=== PATIENT | male | born 1960 | race Caucasian/White ===

== ENCOUNTER 2017-09-30 13:33 | Inpatient (IN) | payer BC, OTHER ==
[2017-09-30] MEDS ORDERED: Sodium Chloride 0.9% 1,000 ML IV ONE ×2 (14:07→14:50)
[2017-09-30] MEDS ORDERED: Sodium Chloride 0.9% 1,000 ML ONE ×2 (14:15→15:11)
--- NOTE | 2017-09-30 14:25 | RAD ---
Chest x-ray single frontal view History: Chest pain. Comparison: None available. Findings: Biapical pleural thickening with upper lobe granulomatous changes. Few small scattered nodular densities in the right lung apex. No focal infiltrate or effusion. Heart size within normal limits. Postsurgical changes of the left proximal humerus. Impression: Biapical pleural thickening with upper lobe granulomatous changes. Few small scattered nodular densities in the right lung apex. No focal infiltrate or effusion. Heart size within normal limits. Postsurgical changes of the left proximal humerus.
[2017-09-30 14:27] LABS: BASO % 0.5 % (0.0-2.0); HEMOGLOBIN 14.1 g/dL (12.0-18.0); LYMPH # 0.5 K/uL (1.0-4.3); LYMPH % 7.8 % (20.0-40.0); MEAN CORPUSCULAR HEMOGLOBIN 38.2 pg (27.0-31.0); MEAN CORPUSCULAR HGB CONC 34.4 g/dL (33.0-37.0); MEAN PLATELET VOLUME 10.5 fL (7.2-11.7); MONO # 0.6 K/uL (0.0-0.8); MONO % 10.1 % (0.0-10.0); NEUT # 4.8 K/uL (1.8-7.0); NEUT % 81.6 % (50.0-75.0); RBC 3.68 Mil/uL (4.40-5.90); RED CELL DISTRIBUTION WIDTH 15.1 % (11.5-14.5); WHITE BLOOD COUNT 5.8 K/uL (4.8-10.8)
[2017-09-30 14:33] LABS: VENOUS BLOOD GAS BASE EXCESS 3.2 mmol/L (0.0-2.0); VENOUS BLOOD GAS PCO2 42 mmHg (40-60); VENOUS BLOOD GAS PO2 27 mm/Hg (30-55); VENOUS BLOOD PH 7.43 (7.32-7.43)
[2017-09-30 14:34] LABS: PLATELET COUNT 68 K/uL (130-400)
[2017-09-30 14:37] LABS: ALB/GLOB RATIO 1.2 (1.0-2.1); ALBUMIN 4.8 g/dL (3.5-5.0); ALT/SGPT 54 U/L (21-72); AST/SGOT 188 U/L (17-59); BLOOD UREA NITROGEN 9 mg/dL (9-20); CALCIUM 10.2 mg/dl (8.6-10.4); GFR AFRICAN-AMERICAN > 60; GFR NON-AFRICAN AMERICAN > 60
[2017-09-30 14:48] LABS: B-TYPE NATRIURETIC PEPTIDE 181 pg/mL (0-900)
--- NOTE | 2017-09-30 15:07 | C.PDOC ---
History Of Present Illness Patient is a 57 y/o male who presents to the ED with a complaint of tremors and generalized body aches for the last 2 days. Patient denies using any medications ; admits last drink was over 1 week ago. Patient is tremulous on arrival. No other physical complaints at this time. Time Seen by Provider: 09/30/17 13:50 Chief Complaint (Nursing): Medical Clearance History Per: Patient History/Exam Limitations: no limitations Onset/Duration Of Symptoms: Days Current Symptoms Are (Timing): Still Present Recent travel outside of the [place]: No Past Medical History Reviewed: Historical Data, Nursing Documentation, Vital Signs Vital Signs: Last Vital Signs Temp 99.7 F H 09/30/17 13:42 Pulse 100 H 09/30/17 16:33 Resp 20 09/30/17 16:33 BP 132/81 09/30/17 16:33 Pulse Ox 98 09/30/17 16:55 - Medical History PMH: No Chronic Diseases Surgical History: Appendectomy Family History: States: No Known Family Hx - Social History Hx Tobacco Use: No Hx Alcohol Use: Yes Hx Substance Use: No - Immunization History Hx Tetanus Toxoid Vaccination: No Hx Influenza Vaccination: No Hx Pneumococcal Vaccination: No Review Of Systems Musculoskeletal: Positive for: Other (body tremors) Psych: Positive for: Withdrawal (alcohol ) Physical Exam - Physical Exam Appears: Non-toxic Skin: Normal Color, Warm, Dry Head: Atraumatic, Normacephalic Oral Mucosa: Moist Chest: Symmetrical Cardiovascular: Rhythm Regular, No Murmur, Other (tachycardic rate) Respiratory: Normal Breath Sounds, No Rales, No Rhonchi, No Wheezing Gastrointestinal/Abdominal: Soft, No Tenderness Additional Physical Exam Comments: assessment: alcohol/withdrawal ED Course And Treatment - Laboratory Results Result Diagrams: 09/30/17 14:19 09/30/17 14:19 ECG: Interpreted By Me, Viewed By Me ECG Rhythm: Sinus Tachycardia ECG Interpretation: Abnormal Interpretation Of ECG: Normal intervals, normal axis. Poor R wave progression. No st/t wave abnormalities. Rate From EC (bpm) O2 Sat by Pulse Oximetry: 98 Pulse Ox Interpretation: Normal - Other Rad CXR X-Ray: Interpreted by Me, Viewed By Me Interpretation: Chest x-ray single frontal view. History: Chest pain. Comparison: None available. Findings: Biapical pleural thickening with upper lobe granulomatous changes. Few small scattered nodular densities in the right lung apex. No focal infiltrate or effusion. Heart size within normal limits. Postsurgical changes of the left proximal humerus. Impression: Biapical pleural thickening with upper lobe granulomatous changes. Few small scattered nodular densities in the right lung apex. No focal infiltrate or effusion. Heart size within normal limits. Postsurgical changes of the left proximal humerus. - CT Scan/US CT Head Other Rad Studies (CT/US): Interpreted By Me, Read By Radiologist CT/US Interpretation: PROCEDURE: CT HEAD WITHOUT CONTRAST. HISTORY: Tremors, alcohol. COMPARISON: None available. TECHNIQUE: Axial computed tomography images were obtained through the head/brain without intravenous contrast. Radiation dose: Total exam DLP = 752.76 mGy-cm. This CT exam was performed using one or more of the following dose reduction techniques: Automated exposure control, adjustment of the mA and/or kV according to patient size, and/ or use of iterative reconstruction technique. FINDINGS: HEMORRHAGE: No intracranial hemorrhage. BRAIN: Keyes-white matter differentiation is preserved. There is no mass, mass effect or abnormal extra-axial fluid collection. There is no territorial infarction. VENTRICLES: There is moderate age advanced global parenchymal volume loss and proportionate enlargement of the ventricles and cortical sulci. CALVARIUM: There is no calvarial fracture or extracranial soft tissue swelling. PARANASAL SINUSES: Unremarkable as visualized. No significant inflammatory changes. MASTOID AIR CELLS: Unremarkable as visualized. No inflammatory changes. OTHER FINDINGS: None. IMPRESSION: No acute intracranial abnormality. Moderate global parenchymal volume loss, advanced for the patient's age. Progress Note: CXR, EKG, blood work, lactic acid, UA ordered. Librium, ativan, reglan, IV fluids administered. On re-eval, repeat lactic acid ordered. Patient has no white count or fever. Tremulous only on arrival. 2L fluid given. - Physician Consult Information Time Consulting Physician Contacted: 04:40 Physician Contacted: Tamera Marie Outcome Of Conversation: Advises to admit patient to [facility] for alcohol withdrawal. Disposition Discussed With : Tamera Marie Doctor Will See Patient In The: Hospital Counseled Patient/Family Regarding: Studies Performed, Diagnosis - Disposition Disposition: HOSPITALIZED Disposition Time: 16:49 Condition: FAIR - Clinical Impression Clinical Impression: Alcohol withdrawal - Scribe Statement The provider has reviewed the documentation as recorded by the Scribe Nereida [place] All medical record entries made by the Selinaibbeatriz were at my direction and personally dictated by me. I have reviewed the chart and agree that the record accurately reflects my personal performance of the history, physical exam, medical decision making, and the department course for this patient. I have also personally directed, reviewed, and agree with the discharge instructions and disposition.
[2017-09-30 15:22] LABS: BASOPHIL 1 % (0-2); LYMPHOCYTE 9 % (20-40); MONOCYTE 6 % (0-10); NEUTROPHIL 84 % (50-75); PLATELET ESTIMATE DECREASED (NORMAL); TOTAL CELLS COUNTED 100
[2017-09-30] MEDS ORDERED: Magnesium Sulfate 1 gm in D5W 1 GM/100 ML BAG IVPB ONE ×2 (15:35→15:42)
[2017-09-30 16:28] LABS: SQUAMOUS EPITHIAL < 1 /hpf (0-5); URINE BILIRUBIN NEGATIVE (NEGATIVE); URINE BLOOD NEGATIVE (NEGATIVE); URINE CLARITY Clear (Clear); URINE COLOR Yellow (YELLOW); URINE GLUCOSE (UA) 2+ mg/dL (Normal); URINE LEUKOCYTE ESTERASE NEG Leu/uL (Negative); URINE PROTEIN 1+ mg/dL (NEGATIVE); URINE UROBILINOGEN NORMAL mg/dL (0.2-1.0)
--- NOTE | 2017-09-30 16:34 | CT ---
PROCEDURE: CT HEAD WITHOUT CONTRAST. HISTORY: Tremors, alcohol COMPARISON: None available. TECHNIQUE: Axial computed tomography images were obtained through the head/brain without intravenous contrast. Radiation dose: Total exam DLP = 752.76 mGy-cm. This CT exam was performed using one or more of the following dose reduction techniques: Automated exposure control, adjustment of the mA and/or kV according to patient size, and/or use of iterative reconstruction technique. FINDINGS: HEMORRHAGE: No intracranial hemorrhage. BRAIN: Keyes-white matter differentiation is preserved. There is no mass, mass effect or abnormal extra-axial fluid collection. There is no territorial infarction. VENTRICLES: There is moderate age advanced global parenchymal volume loss and proportionate enlargement of the ventricles and cortical sulci. CALVARIUM: There is no calvarial fracture or extracranial soft tissue swelling. PARANASAL SINUSES: Unremarkable as visualized. No significant inflammatory changes. MASTOID AIR CELLS: Unremarkable as visualized. No inflammatory changes. OTHER FINDINGS: None. IMPRESSION: No acute intracranial abnormality. Moderate global parenchymal volume loss, advanced for the patient's age.
[2017-09-30 16:42] LABS: BARBITURATES, UR NEGATIVE (NEGATIVE); BENZODIAZEPINES, UR NEGATIVE (NEGATIVE); OPIATES, UR NEGATIVE (NEGATIVE); PHENCYCLIDINE, UR NEGATIVE (NEGATIVE)
[2017-09-30 17:03] LABS: VENOUS BLOOD GAS BASE EXCESS -0.2 mmol/L (0.0-2.0); VENOUS BLOOD GAS PCO2 41 mmHg (40-60); VENOUS BLOOD GAS PO2 32 mm/Hg (30-55); VENOUS BLOOD PH 7.39 (7.32-7.43)
[2017-09-30] MEDS ORDERED: Dextrose 5%/0.45% NS 1,000 ML IV SCH (21:00)
--- NOTE | 2017-10-01 08:40 | CP.PCM.PN ---
Subjective - Date & Time of Evaluation Date of Evaluation: 10/01/17 Time of Evaluation: 08:36 - Subjective Subjective: Progress Note for Dr. Marie Patient seen and examined at bedside. Patient had a fever of 100.3F overnight. Patient is resting in bed comfortably. Patient states his last drink was 2 weeks ago. He had vodka but unsure the amount he had. Patient is still tremulous. Objective - Vital Signs/Intake and Output Vital Signs (last 24 hours): Temp Pulse Resp BP Pulse Ox 100.3 F H 112 H 20 149/96 H 100 10/01/17 05:47 10/01/17 05:47 10/01/17 05:47 10/01/17 05:47 10/01/17 05:47 Intake and Output: 10/01/17 10/01/17 06:59 18:59 Intake Total 800 Output Total 300 Balance 500 - Medications Medications: Current Medications Enoxaparin Sodium (Lovenox) 40 mg SC DAILY [facility] Dextrose/Sodium Chloride (Dextrose 5%/0.45% Ns 1000 Ml) 1,000 mls @ 200 mls/hr IV .Q5H [facility] Ibuprofen (Motrin Tab) 400 mg PO Q6 PRN PRN Reason: Fever >100.4 F Lorazepam (Ativan) 1 mg IVP Q4H PRN PRN Reason: Anxiety Last Admin: 10/01/17 06:44 Dose: 1 mg Pantoprazole Sodium (Protonix Inj) 40 mg IVP DAILY [facility] Thiamine HCl (Vitamin B1 Tab) 100 mg PO DAILY [facility] - Labs Labs: 09/30/17 14:19 09/30/17 14:19 - Constitutional Appears: Non-toxic, No Acute Distress - Head Exam Head Exam: ATRAUMATIC, NORMOCEPHALIC - Eye Exam Eye Exam: EOMI, Normal appearance - ENT Exam ENT Exam: Mucous Membranes Moist - Neck Exam Neck Exam: Full ROM, Normal Inspection - Respiratory Exam Respiratory Exam: Clear to Ausculation Bilateral, NORMAL BREATHING PATTERN. absent: Wheezes, Respiratory Distress - Cardiovascular Exam Cardiovascular Exam: Tachycardia, +S1, +S2 - GI/Abdominal Exam GI & Abdominal Exam: Soft, Normal Bowel Sounds. absent: Tenderness - Extremities Exam Extremities Exam: absent: Joint Swelling, Tenderness - Neurological Exam Neurological Exam: Alert, Awake Additional comments: bilateral hands tremors - Psychiatric Exam Psychiatric exam: Flat Affect - Skin Skin Exam: Dry, Warm Assessment and Plan - Assessment and Plan (Free Text) Assessment: Alcohol withdrawal -Ativan 1mg IV PRN -IVF 200ml/hr -CT head shows no acute intracranial pathologies -Thiamine 100mg -CIWA -Fall precaution Fever -Follow up blood and urine cultures -CXR shows Biapical pleural thickening with upper lobe granulomatous changes -Follow up repeat CXR -start Rocephin 1gm Q24h Hypokalemia -K 3.5 today -Supplement as needed Prophylactic measures -Protonix -PT Discussed with attending physician, all management per Dr. Marie
[2017-10-01 08:45] LABS: BASO % 0.7 % (0.0-2.0); EOS % 0.6 % (0.0-4.0); HEMOGLOBIN 14.3 g/dL (12.0-18.0); LYMPH # 1.3 K/uL (1.0-4.3); LYMPH % 23.1 % (20.0-40.0); MEAN CELL VOLUME 111.5 fL (80.0-94.0); MEAN CORPUSCULAR HEMOGLOBIN 38.8 pg (27.0-31.0); MEAN CORPUSCULAR HGB CONC 34.8 g/dL (33.0-37.0); MEAN PLATELET VOLUME 11.2 fL (7.2-11.7); MONO # 0.5 K/uL (0.0-0.8); MONO % 9.9 % (0.0-10.0); NEUT # 3.6 K/uL (1.8-7.0); NEUT % 65.7 % (50.0-75.0); NRBC % 0.1 % (0.0-2.0); RBC 3.68 Mil/uL (4.40-5.90); WHITE BLOOD COUNT 5.4 K/uL (4.8-10.8)
[2017-10-01 09:12] LABS: ALB/GLOB RATIO 1.1 (1.0-2.1); ALBUMIN 4.3 g/dL (3.5-5.0); ALT/SGPT 60 U/L (21-72); AST/SGOT 185 U/L (17-59); BLOOD UREA NITROGEN 5 mg/dL (9-20); CALCIUM 9.6 mg/dl (8.6-10.4); GFR AFRICAN-AMERICAN > 60; GFR NON-AFRICAN AMERICAN > 60
[2017-10-01] MEDS: Enoxaparin 40 mg Syringe SC SCH (10:22)
[2017-10-01] MEDS: Dextrose 5%/0.45% NS 1,000 ML IV SCH ×4 (14:30→21:20)
--- NOTE | 2017-10-01 16:13 | RAD ---
HISTORY: fever, abnormal CXR COMPARISON: He 09/30/2017. FINDINGS: LUNGS: The lungs are well inflated and clear. PLEURA: No significant pleural effusion identified, no pneumothorax apparent. CARDIOVASCULAR: Normal. OSSEOUS STRUCTURES: Stable left shoulder arthroplasty. Otherwise, is osseous structures are within normal limits for the patient's age. He VISUALIZED UPPER ABDOMEN: Normal. OTHER FINDINGS: None. IMPRESSION: No active pulmonary disease.
[2017-10-01] MEDS ORDERED: Potassium Chloride 20 mEq ER Tab PO ONE (16:45)
--- NOTE | 2017-10-02 02:23 | CARD ---
APPROVED REPORT EKG Measurement Heart [id number] IN [id number] <Conclusion> Sinus tachycardia Abnormal ECG
[2017-10-02] MEDS: Dextrose 5%/0.45% NS 1,000 ML IV SCH ×5 (02:35→23:25)
--- NOTE | 2017-10-02 08:10 | HP ---
SUBJECTIVE: A 57-year-old man with a history of alcoholism, admitted to the hospital with a chief complaint of shaking over the extremity, weakness, dizziness. The patient came to the ER, found to have pre-DT, advised admission. PHYSICAL EXAMINATION: GENERAL: The patient is awake, alert, oriented. VITAL SIGNS: Temperature 98, pulse 90. HEENT: Within normal limits. NECK: Supple. CHEST: Symmetrical. HEART: Regular. ABDOMEN: Soft. EXTREMITIES: shaking in the extremities. ASSESSMENT AND PLAN: The patient does have delirium tremens. The patient to get bedrest, supportive care. Tamera Marie MD
[2017-10-02] MEDS: Enoxaparin 40 mg Syringe SC SCH (10:15)
[2017-10-02] MEDS ORDERED: Potassium Chloride 20 mEq ER Tab PO ONE (11:14)
[2017-10-03] MEDS: Dextrose 5%/0.45% NS 1,000 ML IV SCH ×4 (00:52→14:30)
[2017-10-03] MEDS: Enoxaparin 40 mg Syringe SC SCH (09:27)
[2017-10-04] MEDS: Dextrose 5%/0.45% NS 1,000 ML IV SCH ×4 (05:43→19:45)
[2017-10-04 08:11] LABS: BASO % 0.7 % (0.0-2.0); EOS # 0.1 K/uL (0.0-0.7); EOS % 2.4 % (0.0-4.0); HEMOGLOBIN 13.4 g/dL (12.0-18.0); LYMPH # 1.2 K/uL (1.0-4.3); LYMPH % 24.9 % (20.0-40.0); MEAN CORPUSCULAR HEMOGLOBIN 39.5 pg (27.0-31.0); MEAN CORPUSCULAR HGB CONC 34.6 g/dL (33.0-37.0); MEAN PLATELET VOLUME 10.6 fL (7.2-11.7); MONO # 0.7 K/uL (0.0-0.8); MONO % 14.4 % (0.0-10.0); NEUT # 2.8 K/uL (1.8-7.0); NEUT % 57.6 % (50.0-75.0); NRBC % 0.2 % (0.0-2.0); RBC 3.39 Mil/uL (4.40-5.90); RED CELL DISTRIBUTION WIDTH 15.3 % (11.5-14.5); WHITE BLOOD COUNT 4.8 K/uL (4.8-10.8)
[2017-10-04 08:17] LABS: ALB/GLOB RATIO 1.1 (1.0-2.1); ALBUMIN 3.9 g/dL (3.5-5.0); ALT/SGPT 50 U/L (21-72); AST/SGOT 126 U/L (17-59); BLOOD UREA NITROGEN 8 mg/dL (9-20); CALCIUM 9.1 mg/dl (8.6-10.4); GFR AFRICAN-AMERICAN > 60; GFR NON-AFRICAN AMERICAN > 60
--- NOTE | 2017-10-04 08:33 | PN ---
DATE: 10/02/2017 SUBJECTIVE: The patient needs supportive care. Shaking less, . Tamera Marie MD
[2017-10-04] MEDS: Enoxaparin 40 mg Syringe SC SCH (09:27)
[2017-10-04] MEDS: Multiple Vitamins Tab PO SCH (09:27)
--- NOTE | 2017-10-04 09:36 | CP.PCM.PN ---
Subjective - Date & Time of Evaluation Date of Evaluation: 10/04/17 Time of Evaluation: 09:35 - Subjective Subjective: Progress note. Attending: Dr. Marie Pt seen and examined at bedside. No acute distress. No events overnight. No fevers, chills, vomiting, diarrhea, chest pain, palpitations, dizziness. Objective - Vital Signs/Intake and Output Vital Signs (last 24 hours): Temp Pulse Resp BP Pulse Ox 98.0 F 93 H 20 190/92 H 96 10/04/17 08:45 10/04/17 08:45 10/04/17 08:45 10/04/17 08:45 10/04/17 08:45 Intake and Output: 10/04/17 10/04/17 06:59 18:59 Intake Total 400 Balance 400 - Medications Medications: Current Medications Enoxaparin Sodium (Lovenox) 40 mg SC DAILY [facility] Last Admin: 10/04/17 09:27 Dose: 40 mg Ceftriaxone Sodium 1 gm/ (Sodium Chloride) 100 mls @ 100 mls/hr IVPB Q24H [facility] PRN Reason: Protocol Last Admin: 10/03/17 13:46 Dose: 100 mls/hr Ibuprofen (Motrin Tab) 400 mg PO Q6 PRN PRN Reason: Fever >100.4 F Lorazepam (Ativan) 1 mg IVP Q4H PRN PRN Reason: Anxiety Last Admin: 10/01/17 06:44 Dose: 1 mg Multivitamins (Hexavitamin) 1 tab PO DAILY [facility] Last Admin: 10/04/17 09:27 Dose: 1 tab Pantoprazole Sodium (Protonix Inj) 40 mg IVP DAILY [facility] Last Admin: 10/04/17 09:28 Dose: 40 mg Thiamine HCl (Vitamin B1 Tab) 100 mg PO DAILY [facility] Last Admin: 10/04/17 09:27 Dose: 100 mg - Labs Labs: 10/04/17 07:46 10/04/17 07:46 - Constitutional Appears: Non-toxic, No Acute Distress - Head Exam Head Exam: ATRAUMATIC, NORMAL INSPECTION, NORMOCEPHALIC - Eye Exam Eye Exam: EOMI - ENT Exam ENT Exam: Mucous Membranes Moist - Neck Exam Neck Exam: Full ROM, Normal Inspection - Respiratory Exam Respiratory Exam: NORMAL BREATHING PATTERN. absent: Respiratory Distress - Cardiovascular Exam Cardiovascular Exam: REGULAR RHYTHM, +S1, +S2 - GI/Abdominal Exam GI & Abdominal Exam: Soft, Normal Bowel Sounds. absent: Tenderness - Extremities Exam Extremities Exam: Full ROM, Normal Inspection - Back Exam Back Exam: NORMAL INSPECTION - Neurological Exam Neurological Exam: Alert, Awake, Oriented x3 - Psychiatric Exam Psychiatric exam: Normal Affect, Normal Mood - Skin Skin Exam: Dry, Intact, Normal Color, Warm Assessment and Plan - Assessment and Plan (Free Text) Assessment: This is a 57 yo male, originally from [place], with 1. Alcohol withdrawal -Ativan 1mg IV PRN -IVF 200ml/hr -CT head shows no acute intracranial pathologies -Thiamine 100 mg daily -CIWA -Fall precaution 2. Fever -pt has been afebrile -Follow up blood and urine cultures -CXR shows biapical pleural thickening with upper lobe granulomatous changes -Follow up repeat CXR -start Rocephin 1gm Q24h 3. Hypokalemia -resolved -Supplement as needed 4. Prophylactic measures -Protonix 40 mg daily -PT Discussed with attending physician, all management per Dr. Marie
[2017-10-05] MEDS: Dextrose 5%/0.45% NS 1,000 ML IV SCH (00:19)
[2017-10-05 08:14] VITALS: BP 136/83; RESP 18; TEMP 99.7; O2SAT 100
[2017-10-05] MEDS: Multiple Vitamins Tab PO SCH (09:39)
--- NOTE | 2017-10-05 13:53 | CP.PCM.PN ---
Subjective - Date & Time of Evaluation Date of Evaluation: 10/05/17 Time of Evaluation: 13:50 - Subjective Subjective: Progress note. Attending: Dr. Marie. Pt seen and examined at bedside. No acute distress. No events overnight. Plan for dc today. Objective - Vital Signs/Intake and Output Vital Signs (last 24 hours): Temp Pulse Resp BP Pulse Ox 99.7 F H 96 H 18 136/83 100 10/05/17 07:05 10/05/17 07:05 10/05/17 07:05 10/05/17 07:05 10/05/17 07:05 Intake and Output: 10/05/17 10/05/17 06:59 18:59 Intake Total 3520 Output Total 1800 Balance 1720 - Labs Labs: 10/04/17 07:46 10/04/17 07:46 - Constitutional Appears: Non-toxic, No Acute Distress - Head Exam Head Exam: ATRAUMATIC, NORMAL INSPECTION, NORMOCEPHALIC - Eye Exam Eye Exam: EOMI - ENT Exam ENT Exam: Mucous Membranes Moist - Neck Exam Neck Exam: Normal Inspection - Respiratory Exam Respiratory Exam: NORMAL BREATHING PATTERN. absent: Respiratory Distress - Cardiovascular Exam Cardiovascular Exam: +S1, +S2 - GI/Abdominal Exam GI & Abdominal Exam: Soft, Normal Bowel Sounds. absent: Tenderness - Extremities Exam Extremities Exam: Full ROM, Normal Inspection - Neurological Exam Neurological Exam: Alert, Awake, Oriented x3 - Psychiatric Exam Psychiatric exam: Normal Affect, Normal Mood - Skin Skin Exam: Dry, Intact, Normal Color, Warm Assessment and Plan - Assessment and Plan (Free Text) Assessment: This is a 57 yo male, originally from [place], with 1. Alcohol withdrawal -Ativan 1mg IV PRN -IVF 200ml/hr -CT head shows no acute intracranial pathologies -Thiamine 100 mg daily -CIWA -Fall precaution 2. Fever -pt has been afebrile -Follow up blood and urine cultures -CXR shows biapical pleural thickening with upper lobe granulomatous changes -Follow up repeat CXR -start Rocephin 1gm Q24h 3. Hypokalemia -resolved -Supplement as needed 4. Prophylactic measures -Protonix 40 mg daily -PT Discussed with attending physician, all management per Dr. Marie
[2017-10-05 14:35] VITALS: PULSE 86
== END 2017-10-05 13:28 | disposition home or self-care (01) | DRG 897 ==
LOC: EDBD 13:33 → C.ER 13:33 → C.9E 16:45 → C.6T 20:00
PROVIDERS: ADMIT Internal Medicine Pulmonary Disease; ATTEND Internal Medicine Pulmonary Disease
PROC: HZ2ZZZZ Detoxification Services for Substance Abuse Treatment (ICD-10-PCS; principal; 2017-09-30)
DX: F10.231 Alcohol dependence with withdrawal delirium (principal); E87.6 Hypokalemia; R50.9 Fever, unspecified; Y90.0 Blood alcohol level of less than 20 mg/100 ml